=== PATIENT | male | born 1980 | race Hispanic/Latino ===

== ENCOUNTER 2021-08-12 04:16 | Emergency (ER) | payer SELFPAY ==
[2021-08-12] MEDS ORDERED: Morphine 4 MG/ML VIAL ONE (04:42)
[2021-08-12] MEDS ORDERED: Promethazine HCl 25 MG/ML VIAL ONE (04:43)
== END 2021-08-12 05:13 | disposition home or self-care (01) ==
LOC: MADERS 04:16
DX: S30.1XXA Contusion of abdominal wall, initial encounter (principal); R11.0 Nausea; Y04.0XXA Assault by unarmed brawl or fight, initial encounter
CPT/HCPCS: 96372; 99283; J2270; J2550